=== PATIENT | male | born 1950 | race Caucasian/White ===

== ENCOUNTER 2020-09-03 13:53 | Emergency (ER) | payer OTHER, BC ==
[2020-09-03] MEDS ORDERED: Ibuprofen 800 MG Tab PO ONE (14:22)
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
== END 2020-09-03 16:46 | disposition home or self-care (01) ==
LOC: MW.ED 13:53
DX: S43.401A Unspecified sprain of right shoulder joint, initial encounter (principal); K21.9 Gastro-esophageal reflux disease without esophagitis; I25.2 Old myocardial infarction; Z95.5 Presence of coronary angioplasty implant and graft; Z79.899 Other long term (current) drug therapy; V86.99XA Unspecified occupant of other special all-terrain or other off-road motor vehicle injured in nontraffic accident, initial encounter
CPT/HCPCS: 73030; 99284; A9270